=== PATIENT | female | born 1955 | race Hispanic/Latino ===

== ENCOUNTER 2018-09-11 22:06 | Emergency (ER) | payer OTHER ==
[2018-09-11 22:07] VITALS: BMI 30.9
[2018-09-11 22:22] VITALS: BP 155/82; PULSE 84; RESP 18; TEMP 98.4
--- NOTE | 2018-09-11 23:38 | ED PDOC ---
Arrival/HPI - General Chief Complaint: Lower Extremity Problem/Injury Time Seen by Provider: 09/11/18 22:25 Historian: Patient - History of Present Illness Narrative History of Present Illness (Text): 63 y/o female with PMH of HTN and gastric ulcers presents to the ED c/o right great toe pain s/p injury at work this morning. Patient works as a typing secretary in same day surgery at [employer] and was attempting to move a stretcher when she got her foot stuck, causing immediate pain to her right MTP joint. Pain is worse with ambulation, movement, and bearing weight. Took tylenol for pain this afternoon with some relief. Denies numbness, paresthesias, pain elsewhere, lacerations, abrasions, or any other complaints. Past Medical History - Provider Review Nursing Documentation Reviewed: Yes - Infectious Disease Hx of Infectious Diseases: None - Cardiac Hx Pacemaker: No - Neurological Hx Paralysis: No - Hematological/Oncological Hx Blood Transfusions: No Hx Blood Transfusion Reaction: No - Musculoskeletal/Rheumatological Hx Musculoskeletal Disorders: No - Psychiatric Hx Emotional Abuse: No Hx Physical Abuse: No Hx Substance Use: No - Anesthesia Hx Anesthesia Reactions: No Hx Malignant Hyperthermia: No - Suicidal Assessment Feels Threatened In Home Enviroment: No Family/Social History - Physician Review Nursing Documentation Reviewed: Yes Family/Social History: No Known Family HX Smoking Status: Former Smoker Hx Alcohol Use: Yes (BEER/WINE SOCIALLY) Hx Substance Use: No Allergies/Home Meds Allergies/Adverse Reactions: Allergies No Known Allergies Allergy (Verified 09/11/18 22:28) Home Medications: Home Meds Medication Instructions Recorded Confirmed Irbesartan [Avapro] 150 mg PO DAILY 09/30/15 09/11/18 Omeprazole 40 mg PO DAILY 03/25/16 09/11/18 Review of Systems - Physician Review All systems were reviewed & negative as marked: Yes - Review of Systems Constitutional: Normal. absent: Fevers Eyes: Normal. absent: Vision Changes ENT: Normal. absent: Sinus Congestion Respiratory: Normal. absent: SOB, Cough Cardiovascular: Normal. absent: Chest Pain Gastrointestinal: Normal. absent: Abdominal Pain, Nausea, Vomiting Genitourinary Female: Normal Musculoskeletal: Arthralgias (right foot 1st MTP joint ) Skin: Other (swelling, redness to right foot 1st MTP joint) Neurological: Normal. absent: Headache, Dizziness Endocrine: Normal Hemo/Lymphatic: Normal Psychiatric: Normal Physical Exam Vital Signs Reviewed: Yes Vital Signs Temp Pulse Resp BP Pulse Ox 09/11/18 22:19 98.4 F 84 18 155/82 H 98 Temperature: Afebrile Blood Pressure: Hypertensive Pulse: Regular Respiratory Rate: Normal Appearance: Positive for: Well-Appearing, Non-Toxic, Comfortable Pain Distress: None Mental Status: Positive for: Alert and Oriented X 3 - Systems Exam Head: Present: Atraumatic, Normocephalic Pupils: Present: PERRL Extroacular Muscles: Present: EOMI Conjunctiva: Present: Normal Mouth: Present: Moist Mucous Membranes Neck: Present: Normal Range of Motion Respiratory/Chest: Present: Clear to Auscultation, Good Air Exchange. No: Respiratory Distress, Accessory Muscle Use Cardiovascular: Present: Regular Rate and Rhythm, Normal S1, S2. No: Murmurs Upper Extremity: Present: Normal Inspection, Normal ROM, NORMAL PULSES, Neurovascularly Intact, Capillary Refill < 2s. No: Cyanosis, Edema, Tenderness, Swelling Lower Extremity: Present: Normal Inspection, NORMAL PULSES, Normal ROM, Tenderness (right foot lateral 1st MTP joint), Swelling (right foot 1st MTP joint), Erythema (right foot 1st MTP joint), Capillary Refill < 2 s. No: Edema, Deformity, Temperature Abnormalties Neurological: Present: GCS=15, CN II-XII Intact, Speech Normal, Motor Func Grossly Intact, Normal Sensory Function, Gait Normal, Memory Normal Skin: Present: Warm, Dry, Normal Color. No: Rashes Psychiatric: Present: Alert, Oriented x 3, Normal Insight, Normal Concentration Medical Decision Making ED Course and Treatment: Initial Plan: * Right foot XR * SHAHRAM bandage * Surgical shoe Patient refusing pain medications at this time. Right foot XR negative for fracture or dislocation, as read by me. Patient concerned for possibility of gout. Discussed with patient the risk of NSAID use with her history of gastric ulcers. Shared decision making resulted in decision for patient to take tylenol for pain, RICE extremity, and followup with primary in 2 days for re-evaluation. Plan of care discussed with patient, and strict instructions given regarding prescriptions, importance of follow up, and signs to return to Emergency Department, to include worsening pain, difficulty walking, fever, chills, or any other new/worsening symptoms. Patient verbalizes understanding of discussion. Patient A&Ox3, ambulating with steady gait, stable for discharge home. - RAD Interpretation Radiology Orders: 09/11/18 22:45 FOOT RIGHT GREAT TOE ROUTINE [RAD] Stat Disposition/Present on Arrival - Present on Arrival Any Indicators Present on Arrival: No History of DVT/PE: No History of Uncontrolled Diabetes: No Urinary Catheter: No History of Decub. Ulcer: No History Surgical Site Infection Following: None - Disposition Have Diagnosis and Disposition been Completed?: Yes Diagnosis: Foot contusion Disposition: HOME/ ROUTINE Disposition Time: 23:00 Patient Plan: Discharge Condition: STABLE Discharge Instructions (ExitCare): Contusion (DC) Additional Instructions: Tylenol as needed for pain Rest, ice, elevate injured foot Keep foot compressed and in surgical shoe when ambulating Followup with PMD within 2 days Return to ER for any new/worsening symptoms Referrals: Sarika Ornelas MD [Staff Provider] - Follow up with primary [facility] [Outside] - Follow up with primary Forms: [facility] (Spanish), WORK NOTE
[2018-09-12 00:13] VITALS: O2SAT 99
--- NOTE | 2018-09-12 09:46 | RAD ---
Date of service: 09/11/2018 PROCEDURE: Right Foot Radiographs. HISTORY: trauma r/o fracture COMPARISON: None. FINDINGS: BONES: Normal. No fracture. JOINTS: There is joint space narrowing of the 1st MTP joint SOFT TISSUES: Normal. OTHER FINDINGS: None. IMPRESSION: No acute findings
== END 2018-09-12 | disposition home or self-care (01) ==
LOC: ED 22:06
DX: S90.31XA Contusion of right foot, initial encounter (principal); W23.0XXA Caught, crushed, jammed, or pinched between moving objects, initial encounter; Y92.239 Unspecified place in hospital as the place of occurrence of the external cause; Y99.0 Civilian activity done for income or pay; I10 Essential (primary) hypertension; Z87.891 Personal history of nicotine dependence

== ENCOUNTER 2018-11-09 15:26 | Outpatient (CLI) | payer OTHER | END 2018-11-09 15:27 | disposition home or self-care (01) | LOC: RAD 15:26 | DX: R05 Cough (principal) ==

== ENCOUNTER 2018-11-15 11:27 | Outpatient (CLI) | payer OTHER | END 2018-11-15 11:28 | disposition home or self-care (01) | LOC: RAD 11:27 | DX: Z12.31 Encounter for screening mammogram for malignant neoplasm of breast (principal) ==